=== PATIENT | female | born 1970 | race African-American/Black ===

== ENCOUNTER → 2016-11-04 | Outpatient (CLI) | payer OTHER ==
[~2016-11-04] MED LIST: BACLOFEN10 MG PO; FLEXERIL10 MG PO; HYDROCODON-ACE1 EAC5 PO; PROZAC PO; TRAZODONE HCL100 MG PO
== END | disposition home or self-care (01) ==
LOC: CLAB 09:37
DX: E66.01 Morbid (severe) obesity due to excess calories (principal)
CPT/HCPCS: 36415; 84443; 86677; G0463

== ENCOUNTER → 2016-11-25 | Outpatient (CLI) | payer OTHER ==
--- NOTE | ~2016-11-25 | CR97 ---
[facility] A Service of [facility] & [facility] / [facility] RADIOLOGY TEXT RESULTS PATIENT: SEAN LIRA LOCATION: [facility] : 70 UNIT #: [id number] AGE: [address]: Ulysses Amaya MD SEX: F ORDER DR: [id number] [facility] [address] [place], [place] [address] [id number] O MR#: [id number] Acc #: [id number] NAME: SEAN LIRA : 1970 SEX: F STUDY DATE/TIME: 11/25/2016 9:44 UNIT: [facility] ROOM: STUDY DESCRIPTION: CR Esophagram Attending Physician: Ulysses Amaya M.D. Referring Physician: Ulysses Amaya M.D. Ordering Physician: Ulysses Amaya M.D. Primary Care Physician: Ning Medrano A.P.R.N. MEDICAL IMAGING REPORT This report is preliminary unless electronic signature is present EXAM Single contrast barium esophagram INDICATIONS Preoperative examination prior to laparoscopic gastric banding procedure. Patient does report some shortness of breath with activity. TECHNIQUE Patient was administered thin barium and multiple fluoroscopic images were obtained. FINDINGS Thoracic esophagus is of normal caliber with no evidence of stricture or mass lesion. There is no evidence of hiatal hernia. Suction and motility appeared within normal limits. Total fluoroscopy time was 0.7 minutes of 11 fluoroscopic images were obtained. IMPRESSION Normal single contrast barium esophagram. Dictated by... Em Bartlett M.D. THIS IS AN ELECTRONICALLY VERIFIED REPORT Em Bartlett M.D. at 11/28/2016 5:21 PM STEPH/eun TD: 11/28/2016 16:19 JOB #: [id number] MEDICAL IMAGING REPORT Page 1 of 1 COPY
--- NOTE | ~2016-11-25 | EKG ---
PATIENT: SEAN LIRA UNIT #: [id number] Ventricular Rate: 75 BPM Atrial Rate: 75 BPM P-R Interval: 184 ms QRS Duration: 90 ms Q-T Interval: 416 ms QTC Calculation(Bezet): 464 ms P Henagar: 54 degrees Calculated R Henagar: 31 degrees Calculated T Henagar: -7 degrees Diagnosis Line: Normal sinus rhythm Diagnosis Line: Nonspecific T wave abnormality Diagnosis Line: Prolonged QT Diagnosis Line: Abnormal ECG Diagnosis Line: No previous ECGs available Diagnosis Line: Confirmed by SARAH YEBOAH MD ([id number]) on 11/30/2016 Diagnosis Line: 2:31:45 PM INTERPRETING MD: OBINNA BRADFORD
--- NOTE | ~2016-11-25 | CR63 ---
[facility] A Service of [facility] & [facility] RADIOLOGY TEXT RESULTS PATIENT: SEAN LIRA LOCATION: [facility] : 70 UNIT #: [id number] AGE: [address]: Ulysses Amaya MD SEX: F ORDER DR: [id number] [facility] [address] [place], [place] [address] [id number] O MR#: [id number] Acc #: [id number] NAME: SEAN LIRA : 1970 SEX: F STUDY DATE/TIME: 11/25/2016 9:24 UNIT: [facility] ROOM: STUDY DESCRIPTION: CR Chest 2 View Attending Physician: Ulysses Amaya M.D. Referring Physician: Ulysses Amaya M.D. Ordering Physician: Ulysses Amaya M.D. Primary Care Physician: Ning Medrano A.P.R.N. MEDICAL IMAGING REPORT This report is preliminary unless electronic signature is present EXAM Chest 11/25/2016. [facility] HISTORY 45-year-old woman preop laparoscopic adjustable gastric band placement with possible paraesophageal hernia repair. COMPARISON None. FINDINGS Two-view chest demonstrates normal cardiac size and configuration. Hilar structures and mediastinal contours are preserved. Bilateral lungs are expanded and clear. Large body habitus noted. IMPRESSION Negative chest. Dictated by... Km Da Silva M.D. THIS IS AN ELECTRONICALLY VERIFIED REPORT Km Da Silva M.D. at 11/26/2016 3:01 PM JOSELO/juan ramon TD: 11/25/2016 16:06 JOB #: [id number] MEDICAL IMAGING REPORT Page 1 of 1 COPY
[2016-11-25 08:38] LABS: HEMATOCRIT 35.9 % (35.0-45.0); HEMOGLOBIN 11.5 gm/dL (12.0-16.0); MEAN CELL VOLUME 86.2 FL (83-96); MEAN CORPUSCULAR HEMOGLOBIN 27.6 PG (28-34); MEAN PLATELET VOLUME 7.3 FL (6.5-11.5); RED BLOOD COUNT 4.17 X10e (3.90-5.30); RED CELL DISTRIBUTION WIDTH 15.6 % (11.0-15.5); WHITE BLOOD COUNT 6.5 X10e3 (4.0-10.5)
[2016-11-25 09:23] LABS: ALBUMIN SERUM 3.6 g/dL (3.5-5.0); BILIRUBIN,TOTAL 0.5 mg/dL (0.2-2.0); CREATININE SERUM 0.7 mg/dL (0.6-1.4); GLOM FILT RATE Estimated 121.3 mL/min (>60); POTASSIUM 3.9 mmol/L (3.5-5.1); PROTEIN TOTAL SERUM 7.3 g/dL (6.0-8.3)
== END | disposition home or self-care (01) ==
LOC: CRAD 08:00 → CAMB 08:30
PROVIDERS: Surgery
DX: Z01.818 Encounter for other preprocedural examination (principal)
CPT/HCPCS: 36415; 71020; 74220; 80053; 80061; 84443; 84703; 85027; 93005

== ENCOUNTER → 2016-12-07 | Day surgery (SDC) | payer OTHER ==
--- NOTE | ~2016-12-07 | CR7 ---
[facility] A Service of [facility] & [facility] RADIOLOGY TEXT RESULTS PATIENT: SEAN LIRA [facility] UNIT #: [id number] AGE: [address]: Ulysses Amaya MD SEX: F ORDER DR: [id number] [facility] [address] [place], [place] [address] [id number] O MR#: [id number] Acc #: [id number] NAME: SEAN LIRA : 1970 SEX: F STUDY DATE/TIME: 12/07/2016 8:41 [facility] ROOM: STUDY DESCRIPTION: CR Abdomen Single AP View Attending Physician: Ulysses Amaya M.D. Referring Physician: Ulysses Amaya M.D. Ordering Physician: Ulysses Amaya M.D. Primary Care Physician: Ning Medrano A.P.R.N. MEDICAL IMAGING REPORT This report is preliminary unless electronic signature is present EXAM KUB HISTORY Post Lap-Band placement TECHNIQUE Single view of the abdomen was obtained. FINDINGS Postoperative changes of Lap-Band surgery are noted. The angle of the band with respect to the long axis of the spine is 69.8 degrees. The bowel gas pattern is normal. No postoperative complications are noted. IMPRESSION Satisfactory postoperative appearance. STAT * RESULT Dictated by... Ernie Mcclure M.D. THIS IS AN ELECTRONICALLY VERIFIED REPORT Ernie Mcclure M.D. at 12/07/2016 9:34 AM NAYELY/femi TD: 12/07/2016 09:00 JOB #: [id number] MEDICAL IMAGING REPORT Page 1 of 1 COPY
--- NOTE | ~2016-12-07 | OR ---
Unit #: [id number] #: [id number] Patient: SEAN LIRA [id number] [address] [address] [id number] O MR#: [id number] NAME: SEAN LIRA ROOM: Date of Procedure: 12/07/2016 Admission Date: 12/07/2016 Surgeon: Ulysses Amaya M.D. : 1970 Attending Physician: Ulysses Amaya M.D. Referring Physician: Ulysses Amaya M.D. Primary Care Physician: Ning Medrano A.P.R.N. OPERATIVE REPORT PREOPERATIVE DIAGNOSIS Chronic morbid obesity, BMI of 35. POSTOPERATIVE DIAGNOSES 1. Chronic morbid obesity, BMI of 35. 2. Paraesophageal hiatal hernia. PROCEDURE PERFORMED 1. Laparoscopic adjustable gastric band. 2. Laparoscopic paraesophageal hiatal hernia repair. ASSISTANT Nadeem Barcenas M.D. ANESTHESIA General anesthesia. ESTIMATED BLOOD LOSS Minimal. IV FLUIDS 800 crystalloid. COMPLICATIONS None. INDICATIONS FOR PROCEDURE The patient is a 45-year-old with chronic morbid obesity. DESCRIPTION OF PROCEDURE The patient was taken to the operating room and placed in supine position. General anesthesia was induced. The abdomen was prepped and draped. A 3-cm incision was then made left of the midline. A 10-mm Visiport was then placed intraabdominal under direct vision. The abdomen was insufflated to 15 mmHg with CO2. The patient was then placed in a steep reversed Trendelenburg. General inspection of the abdomen revealed what appeared to be a paraesophageal hernia. This was identified with a defect at the diaphragm using anterior palpation with the instrument. We then made a small incision in the subxiphoid region. A Kartik liver retractor was then placed intraabdominal and used to retract the left lobe of the liver upward to further expose the paraesophageal hernia and GE junction. I then placed a 5-mm port in the right upper quadrant, a 10-mm Unit #: [id number] #: [id number] Patient: SEAN LIRA port in the left upper quadrant, and another 5-mm port in the left lower quadrant. The stomach was retracted medial and downward. Upon retracting the stomach, we took down the paraesophageal ligament, exposing the right and left jose at the paraesophageal hernia. Any hernia sac was reduced. We then repaired the paraesophageal hernia using interrupted #0 Ethibond sutures in a [id number]-[id number] type fashion. This formed a snug repair to the anterior esophagus. We then retracted the stomach medially and further exposed the angle of His using Bovie electrocautery. The stomach was then retracted laterally. We then took down the hepatogastric ligament with Bovie electrocautery. This exposed the right jose. Using blunt dissection, I created a retrogastric tunnel from this point to the angle of His. The band was then placed intraabdominal through the 10-mm port site. This was then brought through the retrogastric tunnel in a pars flaccida technique. The band was then closed anteriorly to form a 20-mL to 25-mL anterior gastric pouch. The fundus was then secured to the anterior pouch to prevent movement around the stomach using two interrupted #0 Ethibond sutures. A third suture was then used as a gathering stitch from the lesser curve to the anterior stomach, gathering and imbricating the remaining fundus of the stomach. The tubing was then brought out through the midline 10-mm port site. All ports and the Kartik liver retractor were removed under direct vision with no evidence of abdominal hemorrhage. A polypropylene mesh was then secured to the posterior face of the laparoscopic band port. This was secured using #0 Ethibond suture. This was then cut to shape. The port was then connected to the tubing and placed into a subcutaneous pocket just anterior to the rectus sheath. Its position was then confirmed. All tubing was then placed intraabdominal. The wounds were then closed with interrupted 4-0 Vicryl. The patient tolerated the procedure well and was sent to the recovery room in good condition. Dictated by... Genny Talamantes/maryam TD: 12/08/2016 06:31 JOB #: [id number] OPERATIVE REPORT Page 1 of 1 X Ulysses Amaya MD X PROCEDURE OPERATIVE NOTE
== END | disposition home or self-care (01) ==
LOC: CSUR 05:49
DX: E66.01 Morbid (severe) obesity due to excess calories (principal); Z68.35 Body mass index [BMI] 35.0-35.9, adult; K44.9 Diaphragmatic hernia without obstruction or gangrene; K21.9 Gastro-esophageal reflux disease without esophagitis; M19.90 Unspecified osteoarthritis, unspecified site
CPT/HCPCS: 74000; C1781; J0330; J0690; J1650; J1885; J2250; J2370; J2405; J2550; J2710; J3010